=== PATIENT | male | born 1980 | race Caucasian/White ===

== ENCOUNTER 2021-05-09 23:18 | Emergency (ER) | payer OTHER ==
[2021-05-10 01:06] LABS: CORONAVIRUS 2019 SARS-COV-2 POSITIVE (NEGATIVE); INFLUENZA A NAA NEGATIVE (NEGATIVE)
[2021-05-10 01:43] LABS: BASOPHIL 0.4 % (0-2); EOSINOPHIL 2.3 % (0-5); HCT 45.2 % (42.0-52.0); HGB 15.8 g/dl (13.2-18.0); LYMPHOCYTE 19.9 % (15-48); MCH 31.5 pg (25.0-31.0); MONOCYTE 6.7 % (0-12); MPV 9.5 fL (6.0-9.5); NEUTROPHIL 70.2 % (41-80); NRBC 0; PLT 200 K/uL (150-400); RBC 5.02 M/uL (4.70-6.00); RDW 12.4 % (11.5-14.0); WBC 19.4 K/uL (4.0-10.5)
[2021-05-10 02:19] LABS: ALBUMIN 3.8 g/dL (3.4-5.0); BILIRUBIN - TOTAL 0.3 mg/dL (0.2-1.0); CREATININE 0.86 mg/dL (0.67-1.17); GLOBULIN (CALCULATION) 3.1 g/dL; POTASSIUM 4.3 mmol/L (3.5-5.1); TOTAL PROTEIN 6.9 g/dL (6.4-8.2)
[2021-05-10] MEDS ORDERED: VIBRAMYCIN100 MG PO (02:45)
[2021-05-10] MEDS ORDERED: ONDANSETRON ODT4 MG PO (02:45)
== END 2021-05-10 00:32 | disposition home or self-care (01) ==
LOC: FER 23:18
PROVIDERS: Emergency Medicine
DX: U07.1 COVID-19 (principal); J12.82 Pneumonia due to coronavirus disease 2019; F17.200 Nicotine dependence, unspecified, uncomplicated
CPT/HCPCS: 36415; 71045; 80053; 84484; 85025; 85379; 93005; J1885; J2405; J7030; U0002